=== PATIENT | female | born 1965 | race Caucasian/White ===

== ENCOUNTER 2019-09-01 14:21 | Inpatient (IN) | payer BC, SELFPAY ==
[2019-09-01 14:28] VITALS: BP 126/73; PULSE 97; RESP 16; TEMP 36.1; O2SAT 96; BMI 21.7
--- NOTE | 2019-09-01 14:43 | DI.RAD.S_ITS ---
PROCEDURE: XR HIP W PEL IF DONE LT 2V INDICATIONS: glf,unable to bear weight TECHNIQUE: AP pelvis with lateral view(s) of the left hip(s). COMPARISON: None. FINDINGS: Bones: No dislocations. Pelvic ring appears intact. No suspicious bony lesions. There is a slightly angulated subcapital femoral neck fracture on the left. Soft tissues: The visualized bowel gas pattern is normal. No suspicious soft tissue calcifications. IMPRESSION: Subcapital left femoral neck fracture, slightly angulated and impacted. Dictated by: Julio Dunham M.D. on 09/01/2019 at 16:17 Approved by: Julio Dunham M.D. on 09/01/2019 at 16:18
--- NOTE | 2019-09-01 15:06 | DI.RAD.S_ITS ---
PROCEDURE: XR CHEST 1V INDICATIONS: hip fx. TECHNIQUE: One view of the chest was acquired. COMPARISON: None. FINDINGS: Surgical changes and devices: None. Lungs and pleura: Lungs are clear. No pleural effusions or pneumothorax. Mediastinum: Mediastinal contours appear normal. Heart size is normal. Bones and chest wall: No suspicious bony lesions. Overlying soft tissues appear unremarkable. IMPRESSION: Normal for age, no contraindication to surgical intervention is found. Dictated by: Julio Dunham M.D. on 09/01/2019 at 15:49 Approved by: Julio Dunham M.D. on 09/01/2019 at 15:49
--- NOTE | 2019-09-01 15:06 | ED_ITS ---
HPI - Extremity Injury (Lower) General Chief Complaint: Extremity Injury, Lower Stated Complaint: GLF, left leg pain Time Seen by Provider: 09/01/19 15:06 Source: patient Mode of arrival: Wheelchair Limitations: no limitations History of Present Illness HPI Narrative: This is a 53-year-old female comes emergency department with complaint of left hip pain. Patient was running across her living room when she tripped on a dog toy and fell onto her left hip on a hardwood floor. She immediately had pain. She has a little bit of numbness down her left and tingling into her 4th and 5th toe. She denies any other injuries other than a little bit elbow pain and a little bit of left rib pain patient states no other injuries. No abrasions or cuts. She is not on any blood thinners. She takes a statin daily as well as thyroid medication. She has had Harish fundoplication x2 as well as surgery for a prolapsed uterus. Patient has vomiting with codeine but states that other narcotics have not given her trouble. She denies other allergies. No tobacco occasional alcohol, no illicit. She states her last drin k was last night. Last time she ate or drink anything was 11:00 a.m. this morning she had toast as well as something to drink. She was transported via private vehicle from [facility] where she lives and she received 200 micro g of fentanyl IM and some Tylenol p.o. prior to travel. She is accompanied by her . Related Data Home Medications Medication Instructions Recorded Confirmed atorvastatin 10 mg PO DAILY 09/01/19 09/01/19 diazepam 5 mg PO DAILY PRN 09/01/19 09/01/19 levothyroxine [Synthroid] 88 mcg PO DAILY 09/01/19 09/01/19 ranitidine HCl [Zantac] 150 mg PO DAILY 09/01/19 09/01/19 Allergies Allergy/AdvReac Type Severity Reaction Status Date / Time codeine Allergy Verified 09/01/19 14:33 Review of Systems Review of Systems ROS Unobtainable: All systems reviewed & are unremarkable except as noted in HPI and below Patient History Social History household members: spouse Smoking Status: Unknown if ever smoked Smoking Status: Unknown if ever smoked alcohol intake frequency: holidays/special occasions only Substance Use Type: does not use Exam Narrative Exam Narrative: GENERAL: Alert and oriented x three, well-nourished female, moderate distress. HEENT: Head normocephalic, atraumatic, EOMI, pupils reactive, face symmetric, moist mucous membranes NECK: Supple, full range of motion CARDIOVASCULAR: Regular rate and rhythm without murmurs, rubs or gallops. RESPIRATORY: Breath sounds equal bilaterally, no wheezes rales or rhonchi. ABDOMEN: Soft, nontender. Normoactive bowel sounds all 4 quadrants. No guarding or rebound, rigidity, no mass : No CVA tenderness EXTREMITIES: Left hip pain, decreased range of motion on the patient has some at the left hip, she has sensation throughout the foot. Positive pulse in the left foot with full range of motion of the foot. Cap refill less than 2 seconds., no clubbing or edema. Neurovascularly intact. NEUROLOGICAL: Cranial nerves II through XII grossly intact. Moving all extremities SKIN: Warm, dry, no petechiae, no rashes or lesions. Initial Vital Signs Initial Vital Signs: Vital Signs Temperature 96.9 F L 09/01/19 14:28 Pulse Rate 97 H 09/01/19 14:28 Respiratory Rate 16 09/01/19 14:28 Blood Pressure 126/73 09/01/19 14:28 Pulse Oximetry 96 09/01/19 14:28 Course Orders Ordered: ED Orders 09/01/19 14:43 XR hip w pel if done LT 2V Stat 09/01/19 15:06 XR chest 1V Stat 09/01/19 15:35 Basic Metabolic Panel Stat Complete Blood Count AUTO DIFF Stat Type and Screen Stat Discontinued Medications Hydromorphone HCl (Dilaudid) 0.5 mg IV NOW ONE Stop: 09/01/19 15:21 Last Admin: 09/01/19 15:35 Dose: 0.5 mg Documented by: MARCOSOTEM Hydromorphone HCl (Dilaudid) 0.5 mg IV NOW ONE Stop: 09/01/19 17:22 Last Admin: 09/01/19 17:46 Dose: 0.5 mg Documented by: ASHLI Lorazepam (Ativan) 0.5 mg IV NOW ONE Stop: 09/01/19 16:36 Last Admin: 09/01/19 16:48 Dose: 0.5 mg Documented by: ASHLI Vital Signs Vital signs: Vital Signs - 8 hr 09/01/19 14:28 09/01/19 17:11 Temperature 96.9 F L Pulse Rate 97 H 96 H Respiratory Rate 16 14 Blood Pressure 126/73 140/91 H Pulse Oximetry 96 97 MDM - Extremity Injury (Lower) Lab Data Result diagrams: 09/01/19 15:35 09/01/19 15:35 Labs: Lab Results 09/01/19 09/01/19 09/01/19 Range/Units 15:35 15:35 15:35 WBC 8.9 (4.5-11.0) X10^3/uL RBC 4.52 (4.0-5.2) X10^6/uL Hgb 15.3 (12.0-16.0) g/dL Hct 44.6 (36-46) % MCV 98.6 (80-100) fL MCH 33.9 (26-34) PG MCHC 34.4 (30-36) % RDW 12.5 (11.6-14.8) % Plt Count 239 (150-400) X10^3/uL Neut % (Auto) 82.4 H (50-75) % Lymph % (Auto) 9.1 L (25-40) % [place] % (Auto) 7.5 (3-14) % Eos % (Auto) 0.1 L (2-4) % Baso % (Auto) 0.9 (0-2) % Neut # (Auto) 7400 H (9934-6773) /uL Lymph # (Auto) 800 L (4199-0099) /uL Stokes # (Auto) 700 (0-900) /uL Eos # (Auto) 0 (0-450) /uL Baso # (Auto) 100 (0-100) /uL Sodium 141 (137-145) mmol/L Potassium 3.8 (3.4-5.1) mmol/L Chloride 105 (98-107) mmol/L Carbon Dioxide 21 L (22-32) mmol/L BUN 5 L (7-17) mg/dL Creatinine 0.60 (0.52-1.04) mg/dL Estimated GFR > 60.0 (>60) mL/min BUN/Creatinine Ratio 8.3 (6-22) Glucose 108 H (70-100) mg/dL Calcium 9.3 (8.4-10.2) mg/dL Blood Type A Positive Antibody Screen Negative Imaging Data Hip x-ray: Attestation: I personally reviewed and interpreted this imaging study as follows: My Impression: Patient has a Sonny packed in left femoral neck fracture. Chest x-ray: My Impression: No acute process, no rib fracture appreciated no pneumothorax. No free air under the diaphragm. No pneumothorax. Normal mediastinum with no cardiomegaly. MDM Narrative Medical decision making narrative: Patient comes in with ground level fall left appears to be femoral neck fracture. Patient had basic labs ordered and chest x-ray. I spoke with Dr. Marrufo from orthopedic surgery who accepts. Patient had additional pain medications more comfortable at this time. Dr. Marrufo saw patient in department Discharge Plan Departure Patient Disposition: Admitted As Inpatient Clinical Impression: Closed fracture of neck of left femur Discharge Date/Time: 09/01/19 17:52 Admit Date/Time: 09/01/19 17:26 Admit Provider: Claudette Marrufo
[2019-09-01] MEDS: HYDROMORPHONE 0.5 MG INJ IV ×2 (15:35→17:46)
[2019-09-01] MEDS: ONDANSETRON 4 MG/2 ML INJ (15:56)
[2019-09-01 16:03] LABS: Add Manual Diff / Slide Review NO; Basophils Absolute Auto 100 /uL (0-100); Basophils Percent Auto 0.9 % (0-2); Eosinophils Absolute Auto 0 /uL (0-450); Eosinophils Percent Auto 0.1 % (2-4); Hematocrit 44.6 % (36-46); Hemoglobin 15.3 g/dL (12.0-16.0); Lymphocytes Absolute Auto 800 /uL (1100-4500); Lymphocytes Percent Auto 9.1 % (25-40); Mean Corpuscular HGB Conc 34.4 % (30-36); Mean Corpuscular Hemoglobin 33.9 PG (26-34); Mean Corpuscular Volume 98.6 fL (80-100); Monocytes Absolute Auto 700 /uL (0-900); Monocytes Percent Auto 7.5 % (3-14); Neutrophils Absolute Auto 7400 /uL (1500-7000); Neutrophils Percent Auto 82.4 % (50-75); Platelet Count 239 X10^3/uL (150-400); Red Blood Cell Count 4.52 X10^6/uL (4.0-5.2); Red Cell Distribution Width 12.5 % (11.6-14.8); White Blood Cell Count 8.9 X10^3/uL (4.5-11.0)
[2019-09-01 16:05] LABS: BUN Creatinine Ratio 8.3 (6-22); Blood Urea Nitrogen 5 mg/dL (7-17); Calcium 9.3 mg/dL (8.4-10.2); Carbon Dioxide 21 mmol/L (22-32); Chloride 105 mmol/L (98-107); Estimated Glomerular Filt Rate > 60.0 mL/min (>60); Glucose 108 mg/dL (70-100); HEMOLYSIS 25 (0-50); Potassium 3.8 mmol/L (3.4-5.1); Sodium 141 mmol/L (137-145)
[2019-09-01] MEDS: LORazepam 2 MG/ML INJ 0.5 MG IV (16:48)
[2019-09-01 17:11] VITALS: BP 140/91; PULSE 96; RESP 14; O2SAT 97
[2019-09-01 17:45] VITALS: BP 143/89; PULSE 96; RESP 18; O2SAT 97
[2019-09-01 18:18] VITALS: BMI 21.7
--- NOTE | 2019-09-01 18:58 | PM.HP.1 ---
History of Present Illness History of Present Illness Date Patient Seen: 09/01/19 Time Patient Seen: 19:01 Chief complaint: GLF, left leg pain Narrative: This is a 53-year-old female who accidentally tripped over her dog's toy and landed on her left hip. She noted the acute onset of fairly severe left hip pain. She was evaluated at [facility] noted to have a left hip fracture and transported to [facility]. She notes that she is a nonsmoker she admits to drinking about 3 glasses of wine a day she does use some but not a significant number of carbon needed beverages, she went to the [facility] at [facility]. She did fall on a hardwood floor. She has never had her bone density checked. She does not consume of significant amount of calcium. Patient History Family & Social History Social History: household members spouse Prior Living Arrangements House Safety & Behavioral: Feels Safe in Current Yes Environment Been Physically Hurt or No Threatened By a Person Suicidal Ideation Description None Suicide Plan Description No Plan Tobacco & Substance use: Smoking Status Unknown if ever smoked alcohol intake frequency holiday/special occasion Substance Use Type does not use Meds Home Medications and Allergies Home Medications Medication Instructions Recorded Confirmed Type atorvastatin 10 mg PO DAILY 09/01/19 09/01/19 History diazepam 5 mg PO DAILY PRN 09/01/19 09/01/19 History levothyroxine [Synthroid] 88 mcg PO DAILY 09/01/19 09/01/19 History ranitidine HCl [Zantac] 150 mg PO DAILY 09/01/19 09/01/19 History Allergies Allergy/AdvReac Type Severity Reaction Status Date / Time codeine Allergy Verified 09/01/19 14:33 Review of Systems Review of Systems Narrative: She takes thyroid medicine but she does note that this carefully monitored, she denies a history of lightheadedness chest pain dizziness or any other problems prior prior to tripping over the dog toy. She has had a previous fundoplication and does have a somewhat sensitive stomach. She tolerated pain medications in the past including Dilaudid but has a problem with codeine. Exam Vital Signs (past 8 hours): - 09/01/19 14:28 09/01/19 17:11 09/01/19 17:45 Temperature 96.9 F L Pulse Rate 97 H 96 H 96 H Respiratory Rate 16 14 18 Blood Pressure 126/73 140/91 H Blood Pressure [Right Arm] 143/89 H Pulse Oximetry 96 97 97 Oxygen Delivery Method Room Air Narrative Exam Narrative: She is alert and oriented, HEENT is benign, she is resting comfortably in bed but is little nauseated. Lungs are clear, cor regular rate and rhythm abdomen soft and benign examination of the left lower extremity shows a foreshortened left hip which he is carefully guarding and has propped on pillows, she is neurovascularly intact distally she is able to fire toe flexors and extensors foot is warm with good capillary refill calf to soft bilaterally he has no pain with range of motion in the right hip and severe pain with even gentle motion on the left hip. Objective Labs Result Diagrams: 09/01/19 15:35 09/01/19 15:35 Labs: Laboratory Results - last 24 hr 09/01/19 09/01/19 09/01/19 15:35 15:35 15:35 WBC 8.9 RBC 4.52 Hgb 15.3 Hct 44.6 MCV 98.6 MCH 33.9 MCHC 34.4 RDW 12.5 Plt Count 239 Neut % (Auto) 82.4 H Lymph % (Auto) 9.1 L [place] % (Auto) 7.5 Eos % (Auto) 0.1 L Baso % (Auto) 0.9 Neut # (Auto) 7400 H Lymph # (Auto) 800 L [place] # (Auto) 700 Eos # (Auto) 0 Baso # (Auto) 100 Sodium 141 Potassium 3.8 Chloride 105 Carbon Dioxide 21 L BUN 5 L Creatinine 0.60 Estimated GFR > 60.0 BUN/Creatinine Ratio 8.3 Glucose 108 H Calcium 9.3 Blood Type A Positive Antibody Screen Negative X-rays show a displaced left femoral neck fracture with no significant arthritic change in her hips bilaterally. Assessment & Plan Assessment & Plan narrative: Impression displaced left femoral neck fracture recommendations and plan I have recommended left hip unipolar versus possible total hip arthroplasty. Procedure alternatives risks benefits and complications were discussed in detail. We discussed the possibility of pinning her femoral head versus partial hip replacement versus total hip replacement. The operative plan is for a uncemented partial hip replacement with acetabular replacement if indicated. Limits of the procedure options risks benefits and complications were discussed in detail. She understands and agrees number going to proceed with that tomorrow.
[2019-09-01 19:18] VITALS: BP 146/88; PULSE 92; RESP 18; TEMP 36.2; O2SAT 96
[2019-09-01] MEDS: ONDANSETRON 4 MG/2 ML INJ IV (19:51)
[2019-09-01] MEDS: MORPHINE 2 MG/ML INJ IV (19:51)
[2019-09-01] MEDS: METOCLOPRAMIDE 10 MG/2 ML INJ IV (22:57)
[2019-09-01] MEDS: LACTATED RINGERS 1,000 ML 75 ML IV (23:26)
[2019-09-01 23:45] VITALS: BP 152/95; PULSE 107; RESP 16; TEMP 36.8; O2SAT 96
--- NOTE | 2019-09-01 23:52 | PC.NURSE ---
[facility] shift note: Received patient from ED to room 210, awake, alert, and pleasant. Transferred from [facility] to bed via slider board. NPO after MN. Dr. Marrufo to see patient shortly after arrival, consent signed in chart. C/O nausea and pain, Zofran provided minimal relief, obtained order from Dr. Marrufo for Reglan IV x 1 dose. Becerra Catheter placed, tolerated procedure well. Oriented to room, environment, and plan of care. IVF infusing. Call light within reach. Ed will return in the morning prior to surgery at 1000.
[2019-09-02] VITALS (15 sets, daily range): BP systolic 108–175; BP diastolic 74–110; PULSE 50–109; RESP 10–20; TEMP 36.1–37.1; O2SAT 92–98; BMI 21.7
--- NOTE | 2019-09-02 | DI.RAD.S_ITS ---
PROCEDURE: XR PELVIS 1-2V INDICATIONS: INTER OP TECHNIQUE: Intra-operative view of the pelvis and hip acquired. COMPARISON: [facility], CR, XR HIP W PEL IF DONE LT 2V, 09/01/2019, 14:41. [facility], CR, XR HIP W PEL IF DONE LT 2V, 09/02/2019, 13:25. FINDINGS: Intraoperative image of the hip arthroplasty for repair of the left femoral neck fracture. The image is mislabeled demonstrable via the postoperative appearance of the left hip. IMPRESSION: Intraoperative image of the left hip arthroplasty. Dictated by: Louie George M.D. on 09/02/2019 at 15:26 Approved by: Louie George M.D. on 09/02/2019 at 15:28
[2019-09-02] MEDS: MORPHINE 2 MG/ML INJ IV ×2 (00:08→05:43)
[2019-09-02] MEDS: HYDROMORPHONE 2 MG TABLET PO ×2 (02:35→22:37)
[2019-09-02] MEDS: ONDANSETRON 4 MG/2 ML INJ IV (02:38)
[2019-09-02] MEDS: METOCLOPRAMIDE 10 MG/2 ML INJ IV ×2 (08:46→22:34)
[2019-09-02] MEDS: HYDROMORPHONE 1 MG INJ IV (08:47)
[2019-09-02] MEDS: LACTATED RINGERS 1,000 ML 75 ML IV ×2 (08:49→10:03)
--- NOTE | 2019-09-02 09:50 | PC.NURSE ---
Day shift: Pt off unit for surgery at approx 0950.
[2019-09-02] MEDS: VANCOMYCIN 1,000 MG/200 ML PIGGYBACK 200 MG IV (10:02)
--- NOTE | 2019-09-02 10:19 | SUR.PREOP ---
Transferred patient from Acute care to PACU. Vancomycin started. Patient able to ZEPEDA's x 4. Patient holding an emesis bag. Received Reglan and Diluadid in acute care prior to transfer. at bedside.
--- NOTE | 2019-09-02 11:01 | PM.OP.1 ---
Operative Date/Time/Diagnoses Date of procedure: 09/02/19 Time of procedure: 11:12 Pre-op diagnosis: Left hip femoral neck fracture displaced Post-op diagnosis: same Procedure & Clinicians Procedure: Left hip unipolar Same procedure as scheduled: Yes Indications: This is a 53-year-old female who tripped and fell and noted the acute onset of left hip pain. X-rays showed a displaced left femoral neck fracture she is brought the operating room for a left hip unipolar possible total hip replacement. Surgeon: Claudette Marrufo Toy Assembler: Omar Moraels Anesthesia Type: General Operative Notes Findings: Displaced left femoral neck fracture, good stability, adequate bone Closure Type: primary Specimen(s): none sent Prosthetic devices, grafts, tissues, transplants, or devices: Marrufo and Nephew size 7 standard offset anthology, 47 mm head, +0 Applied: drain(s) Estimated Blood Loss (mL): 250 Blood products transfused: none Procedure in detail: The patient was seen in the pre-operative area, where the patient identified the left hip as the operative site and this was marked with my initials. The patient received pre-operative antibiotics and was taken to the operating room and placed on the operative table in the supine position after satisfactory anesthesia. A multimedia services coordinator out was performed. Patient was placed in the lateral decubitus position and all bony prominences were carefully padded and the arms were appropriately position. The left lower extremity was prepared from the ankle to the iliac crest with ChloroPrep in the usual fashion and draped through sterile drapes. The hip was approached through posterolateral approach. Dissection was carried out down through skin and subcutaneous tissues. The fascia was opened. Gelpi retractors were placed. A Charnley retractor was placed. A small amount of inflamed bursa was resected. The piriformis was identified and protected. The other short external rotators and capsule were carefully stripped from the posterior aspect of the femur. They were tagged and carefully retracted. The femoral neck was brought up and an osteotomy was made of the residual femoral neck approximately 1 fingerbreadth above the lesser trochanter. The head was removed without difficulty. It was carefully sized. The acetabulum was meticulously irrigated with normal saline. There were minimal arthritic changes in the acetabulum. The acetabulum was carefully protected with an E tape. The canal was opened with a box cutting osteotome, followed by a T-handled reamer and a lateralizing reamer. The tapered reamers were then used, followed by sequential broaching. A trial head and neck were then placed and the hip relocated and checked for leg length and stability. The patient was stable in the position of sleep, of squatting, and could be put through a range of motion with 45 degrees internal rotation without dislocation. At 90 degrees flexion, internal rotation to 70 was possible before dislocation. This was felt to be satisfactory and the appropriate components were opened, and the trials were removed. The bone was meticulously cleaned with pulse lavage. The femoral component was placed without difficulty. A repeat trial reduction showed good range of motion and stability. We did a brief Betadine soak after the cement had hardened. Patient had good range of motion and stability. The final head and neck were placed after carefully irrigating the wound. The capsulomuscular flap was then repaired to the greater trochanter though an awl hole using the tag sutures. The short external rotators were repaired with black braided nylon. A deep drain was placed and brought out anteriorly. The fascia seferino was closed with Vicryl. A subcutaneous drain was placed. The subcutaneous layer was closed with interrupted 3-0 Vicryl, and the skin with a running 3-0 V-Lock suture and SteriStrips. An Aquacel Ag dressing was applied and the patient was taken to recovery having tolerated the procedure well. Complications: none Post-operative Condition: stable Disposition: Acute Care Plan for aftercare: The patient will be maintained on a standard total hip replacement protocol with weight bearing as tolerated and posterior hip precautions. The patient will receive Aspirin and sequential compression devices for DVT prophylaxis. The patient will be discharged home when safe for the home environment.
[2019-09-02] MEDS: CEFAZOLIN 2 GM/100 ML FROZ.PIGGY IV ×2 (11:07→19:39)
[2019-09-02] MEDS: TRANEXAMIC ACID 1,000 MG VIAL 2000 MG INJ (11:25)
--- NOTE | 2019-09-02 11:46 | SUR.OPER ---
Lateral on padded OR bed. Gel axillary roll. Arms secured on padded armboard with pillow supporting top arm. Padded hip positioner braces x4 - anterior and posterior chest and pelvis. Additional gel pad used anterior pelvis. Gel pad under bottom leg from knee to foot and secured with tape over sheet.
[2019-09-02] MEDS: BUPIVACAINE 0.25% W/ EPI 30 ML VIAL 60 ML INJ (11:50)
[2019-09-02] MEDS: BUPIVACAINE LIPOSOME 266 MG/20 ML VIAL INJ (11:51)
--- NOTE | 2019-09-02 11:52 | PC.NURSE ---
Day shift: Pt remains off of AC unit at this time.
--- NOTE | 2019-09-02 13:35 | DI.RAD.S_ITS ---
PROCEDURE: XR HIP W PEL IF DONE LT 2V INDICATIONS: surgery TECHNIQUE: AP pelvis and lateral view of the left hip acquired. COMPARISON: [facility], [place], XR HIP W PEL IF DONE LT 2V, 09/01/2019, 14:41. FINDINGS: Bones: Patient is status post left hip arthroplasty, with hardware components in expected positions. The hip joint appears congruent. The visualized bony structures appear intact. Soft tissues: Overlying postoperative changes are noted. No suspicious soft tissue densities. IMPRESSION: Satisfactory appearance of the left hip arthroplasty. Dictated by: Louie George M.D. on 09/02/2019 at 15:29 Approved by: Louie George M.D. on 09/02/2019 at 15:29
--- NOTE | 2019-09-02 14:25 | PC.NURSE ---
Day shift: Pt back to AC unit at approx 1430 from PACU. Aquacel to left hip is CDI. Gustavo-vac patent.
--- NOTE | 2019-09-02 15:13 | CM.DANOTE ---
Discharge Planning/Care Management DCP: assessment: case received, EMR reviewed. Discussed in Team Rounds with plan noted for pt to go to surgery today to repair L hip fracture, obtained after trip and fall involving a dog toy. Pt is a 53 year old female who admitted yesterday evening to care of orthopedic surgeon Dr. Ethan Marrufo. Payer: /[facility] Admission status: INPT: confirmed by UR RN Emily Pt lives in [place] on [address]. PCP: not listed: will confirm when the bedside assessment is completed. Pt has been in surgery today and has just returned to acute care floor. Surgery: L unipolar replacement: posterior precautions. Expect that PT will be ordered and will see what PT reports in Team Rounds tomorrow. Will plan to check in with pt after that and follow for d/c issues and options. Dr. Marrufo states that pt will stay in the hospital until she is stable to return to the home environment. Advanced directive, confirm from FAMILY Start: 09/01/19 18:41 Freq: Q24H Status: Active Protocol: Document 09/01/19 18:41 EM (Rec: 09/01/19 20:41 EM [id number]) Advance Directive, confirm on record Time 20:41 Person contacted Ed Copy received No CM Discharge Assessment Start: 09/02/19 15:12 Freq: Status: Active Protocol: Document 09/02/19 15:12 ITV (Rec: 09/02/19 15:13 ITV [id number]) Discharge Planning Assessment Advance Directives? No History Provided By Medical Record Prior Living Arrangements House Household Members spouse Review Status In Process
[2019-09-02] MEDS: ACETAMINOPHEN 325 MG TABLET 650 MG PO ×2 (16:20→21:14)
[2019-09-02] MEDS: LACTATED RINGERS 1,000 ML 125 ML IV ×2 (16:24→22:34)
[2019-09-02] MEDS: IBUPROFEN 400 MG TABLET PO (21:14)
[2019-09-02] MEDS: DOCUSATE 100 MG CAPSULE PO (21:14)
[2019-09-02] MEDS: ASPIRIN EC 81 MG TABLET PO (21:15)
--- NOTE | 2019-09-02 23:52 | PC.NURSE ---
[facility] shift note: Patient up out of bed with FWW, 1PA, took a few steps and tolerating mobility well, educated regarding precautions. CMS intact. Hemovac output 45 ml. IVF infusing. BP noted to increased in correlation with discomfort. Medicated for pain as ordered with adequate relief. Medicated for nausea with Reglan x 1. High fall risk precautions maintained, calls appropriately for staff assistance.
[2019-09-03] VITALS: BP 130/93; PULSE 87; RESP 16; TEMP 36.6; O2SAT 96
[2019-09-03] MEDS: IBUPROFEN 400 MG TABLET PO ×4 (00:38→13:58)
[2019-09-03] MEDS: CEFAZOLIN 2 GM/100 ML FROZ.PIGGY IV (03:36)
[2019-09-03 04:00] VITALS: BP 148/101; PULSE 82; RESP 16; TEMP 36.6; O2SAT 97
[2019-09-03 06:26] LABS: Hematocrit 41.9 % (36-46); Hemoglobin 14.2 g/dL (12.0-16.0)
[2019-09-03 07:23] VITALS: BP 162/107; PULSE 90; RESP 16; TEMP 36.9; O2SAT 98
[2019-09-03] MEDS: ONDANSETRON 4 MG ODT PO ×2 (08:53→13:24)
[2019-09-03] MEDS: ATORVASTATIN 10 MG TABLET PO (09:43)
[2019-09-03] MEDS: DOCUSATE 100 MG CAPSULE PO (09:43)
[2019-09-03] MEDS: ASPIRIN EC 81 MG TABLET PO (09:43)
[2019-09-03] MEDS: ACETAMINOPHEN 325 MG TABLET 650 MG PO ×2 (09:43→13:58)
[2019-09-03] MEDS: LEVOTHYROXINE 88 MCG TABLET PO (09:44)
[2019-09-03] MEDS: raNITIdine 150 MG CAPSULE PO (09:44)
[2019-09-03] MEDS: HYDROMORPHONE 2 MG TABLET PO ×2 (09:44→13:24)
--- NOTE | 2019-09-03 11:10 | PT.IIE ---
Current Diagnoses Fracture of unspecified part of neck of left femur, initial encounter for closed fracture (09/01/19) Surgery Performed Operation Date: 09/02/19 10:45 Actual Procedures p Hip Hemiarthroplasty Jj(Left) - Claudette Marrufo MD Physical Therapy Inpatient Evaluation/Re-Eval M1 PT/OT-IP Prior Functional Status Start: 09/03/19 08:56 Freq: NEEDED Status: Discharge Protocol: Document 09/03/19 11:10 DLM (Rec: 09/03/19 11:53 DLM [email or web address]) Medical Review Prior Functional Status Medical History Reviewed Yes Diet/Fluid Consistency Regular Communication WFL Mobility and Gait Independent without device, community distances Activities of Daily Living and IADL's Independent, takes care of dog Social History Household Members spouse Living Arrangements House Number of Floors (Floors) Two Floors Number of Stairs To Enter/Railing? 2+2, some with rails but not all Home Environment Standard Height Toilet Additional Social History Comment they will get equipment from [employer] on [address] M2 PT-IP Current Condition Start: 09/03/19 08:56 Freq: NEEDED Status: Discharge Protocol: Document 09/03/19 11:10 DLM (Rec: 09/03/19 12:16 DLM [email or web address]) Physical Therapy Current Condition Current Condition Evaluation Date 09/03/19 Treatment Diagnosis left DIANA following a fall and fx, post, impaired gait Onset Date 09/01/19 Precautions Posterior Hip Precautions No Hip Flexion > 90 degrees,No Hip Internal Rotation,No Hip Adduction Weight Bearing Status Weight Bearing Status Weight Bear as Tolerated M3 PT-IP Subjective Start: 09/03/19 08:56 Freq: NEEDED Status: Discharge Protocol: Document 09/03/19 11:10 DLM (Rec: 09/03/19 12:16 DLM [email or web address]) Subjective Physical Therapy Visit Type Type Initial Evaluation Visit Start Time 10:15 Visit Stop Time 11:10 Total Visit Minutes 55 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 Physical Therapy Visit Comments Patient Comments She is sore today Patient Goals she wants to go home today Therapy Pain Assessment Pain When Pain Assessed During Mobility Pain Present Pain Present Pain Reported Location Left Hip Intensity 4 Scale Used Numeric (1 - 10) Description Aching Pain Behaviors Guarding Pain Management Techniques Apply Cold,Re-positioning M4 PT-IP Mobility and Gait Start: 09/03/19 08:56 Freq: NEEDED Status: Discharge Protocol: Document 09/03/19 11:10 DLM (Rec: 09/03/19 12:16 DLM [email or web address]) PT-Bed Mobility Assessment Supine to Sit Supine to Sit Standby Assistance Sit to Supine Sit to Supine Standby Assistance Scooting Scooting to Edge of Bed Independent Scooting Up and Down in Bed Independent PT-Transfer Assessment Sit to and From Stand Sit to and from Stand Standby Assistance,Use of Upper Extremities Equipment Transfer Assistive Device Gait Belt,Front Wheeled Walker Transfers Transfer Destination Bed Transfer Technique Stand Step Pivot Transfer Ability Level of Assist Standby Assistance,Use of Upper Extremities Comments Mobility Comments verbal cues for post hip precautions, pt has a tall bed at home so trialed a taller bed surface and she manages it well Gait Assessment Gait Gait Assistance Required: Standby Assistance Distance (Feet) 200 Able to Maintain Weight Bearing Status Yes During Gait Assistive Devices Assistive Device Gait Belt,Front Wheeled Walker Gait Deviations General Gait Pattern Antalgic,Decreased Stride Length Factors Limiting Gait Function Factors Limiting Gait Function Decreased Activity Tolerance, Decreased Strength,Limited Range of Motion,Pain,Poor Balance Stair Climbing Assessment Evaluation Level of Assist On Stairs Standby Assistance Devices Stair Climbing Assistive Devices Straight Cane,Axillary Crutches,Right Railing Technique/Endurance Stair Climbing Direction Ascend and Descend Stair Climbing Technique Step to Step Number of Steps Climbed 3 Query Text: Stair Climbing Set # Repetitions (reps) 3 Comments Stair Climbing Comments up and down curb with fWW and SBA. Recommend pt use one crutch and rail for her 13 steps up to the bedroom. She will need her Spouse to assist her to get the fWW from one level of the house to the next PT-Balance Assessment Sitting Balance and Reactions Static Sitting Balance Ability Good Dynamic Sitting Balance Ability Good Standing Balance and Reactions Static Standing Balance Ability Good Dynamic Standing Balance Ability Good Device Used FWW M5 PT-IP Objective Assessments Start: 09/03/19 08:56 Freq: NEEDED Status: Discharge Protocol: Document 09/03/19 11:10 DLM (Rec: 09/03/19 12:16 DLM [email or web address]) Orientation Orientation/Cognition Level of Alertness Alert Orientation Name,Age,Birthday,Month,Date, Year,Day of Week,Place, Situation Language Function Ability No Deficits Noted Safety Awareness Understands Safety Issues Memory Description No Deficits Noted Gross Range of Motion Upper Extremity ROM Assessment Within Functional Limits Lower Extremity ROM Assessment Left Impaired Impairments post-op precautions and pain limit her ROM Strength Upper Extremity Strength Assessment Within Functional Limits Lower Extremity Strength Assessment Left Impaired Hip flexion 2+/5 Knee ext 3+/5 Ankle DF 4+/5 Comments Strength Comments pain limits strength left LE post-op Coordination Assessment Gross Coordination Gross Coordination Impaired Assessment Coordination Comments mild to moderate tremors, able to use hands functionally Sensation Assessment Sensation Gross Sensation WNL Muscle Tone Muscle Tone WNL Yes M6 PT-IP Treatment Start: 09/03/19 08:56 Freq: NEEDED Status: Discharge Protocol: Document 09/03/19 11:10 DLM (Rec: 09/03/19 12:16 DLM [email or web address]) Physical Therapy Treatment Exercises Exercises Ankle Pumps Education Education Provided Precautions,Weight Bearing Status,Post-Op Packet,Safety M7 PT-IP Assessment and Plan Start: 09/03/19 08:56 Freq: NEEDED Status: Discharge Protocol: Document 09/03/19 11:10 DLM (Rec: 09/03/19 12:16 DLM [email or web address]) PT Summary Assessment and Plan Potential Rehabilitation Potential Excellent Status of Condition at Evaluation Evolving Summary Impairments Pain,ROM,Strength,Balance,Bed Mobility,Transfers,Gait, Activity Tolerance Progress Towards Goals Safe For Discharge Assessment Summary Heaven is very motivated to return home today. She tolerated gait with fWW well. She is able to get up and down stairs as needed to manage at home. She has a supportive Spouse to assist her at home. Her Spouse has a plan to get equipment as needed on [facility]. Pt is safe to discharge home with assist from her Spouse. Notified the nurse that pt is safe to discharge home when medically cleared. Pt still has munoz catheter in at this time. Frequency of Treatment Frequency Of Treatment Discharge Recommendations To Nursing Amount of Assist Needed Standby Assistance Discharge Recommendations PT Discharge Recommendations Home with Assistance Equipment Needed for Home Before pt plans to get equipment on Discharge [facility]- FWW, crutches, cane, raised toilet seat with armrest, shower chair Transportation Needs at Discharge Private Vehicle
[2019-09-03 12:08] VITALS: BP 140/107; PULSE 86; RESP 16; TEMP 36.9; O2SAT 98
--- NOTE | 2019-09-03 13:27 | PM.PN.1 ---
Subjective Subjective Date Patient Seen: 09/03/19 Time Patient Seen: 13:27 Interval history: Patient is POD#1 s/p left hip unipolar replacement following femoral neck fracture with Dr. Marrufo. Pain has been moderate to severe but controlled with medication. She has mobilized with PT. She is voiding appropriately. She denies any chest pain, shortness of breath, nausea or vomiting. Exam Vital Signs (past 8 hours): - 09/03/19 07:23 Temperature 98.5 F Pulse Rate 90 Respiratory Rate 16 Blood Pressure 162/107 H Pulse Oximetry 98 Oxygen Delivery Method Room Air Oxygen Flow Rate 0 Narrative Exam Narrative: 53 year old female resting in bed. Alert and oriented in no acute distress. Aquacel dressing over left hip is CDI. Intact motor in distal extremity. Objective Labs Result Diagrams: 09/03/19 05:55 09/01/19 15:35 Labs: Laboratory Results - last 24 hr 09/03/19 05:55 Hgb 14.2 Hct 41.9 Assessment & Plan Assessment & Plan narrative: Patient progressing well post operatively. Prescriptions for Dilaudid and Zofran provided for postop pain. ASA 81mg BID for DVT prophylaxis. She has been cleared by PT. Discharge to home later today. Follow up with [facility] in 2 weeks.
--- NOTE | 2019-09-03 14:08 | PC.NURSE ---
c/m/s to LLE positive, ppp; pt ambulates to bathroom with fww and voiding; Hemovac d/c at 1300, scant drainage; PO pain medication and zofran PRN; IV d/c at 1300; patient instructed regarding RX medications, f/u care, s/sx infection; pt escorted via wheelchair to personal vehicle with ferry pass and personal belongings on hand.
--- NOTE | 2019-09-03 15:05 | CM.DPC ---
dCP: continued: case discussed in Team Rounds with PT saying the first eval would be today. Was updated later by PT Rosa that pt was very much hoping for a d/c back to [place] ferry and was eagerly waiting for otho team to give her the d/c order. A check in now shows that pt did leave for [facility] in company of her at 1300.
== END 2019-09-03 14:00 | disposition home or self-care (01) | DRG 470 ==
LOC: ED 16:10 → AC 17:28
PROVIDERS: Admitting Provider Orthopaedic Surgery; Emergency Provider Emergency Medicine; Referring Provider Emergency Medicine; Visit Provider Orthopaedic Surgery
PROC: 0SRS0JZ Replacement of Left Hip Joint, Femoral Surface with Synthetic Substitute, Open Approach (ICD-10-PCS; CPT 27125; principal; 2019-09-02 10:45)
DX: S72.002A Fracture of unspecified part of neck of left femur, initial encounter for closed fracture (principal); W01.0XXA Fall on same level from slipping, tripping and stumbling without subsequent striking against object, initial encounter; Y92.008 Other place in unspecified non-institutional (private) residence as the place of occurrence of the external cause
CPT/HCPCS: 36415; 71045; 72170; 73502; 80048; 85014; 85018; 85025; 86850; 86900; 86901; 96374; 96375; 96376; 97116; 97162; 97530; 99284; C1776; C9290; J0690; J1100; J1170; J2060; J2270; J2405; J2704; J2765; J3010

== ENCOUNTER → 2021-08-03 09:28 | Outpatient (CLI) | payer OTHER, SELFPAY ==
[2021-08-03 20:20] LABS: COVID19 - ORCAS (NP or Nasal) Negative (Negative)
== END ==
PROVIDERS: PCP Family Medicine; Visit Provider Physician Assistant Medical
DX: Z01.812 Encounter for preprocedural laboratory examination (principal)
CPT/HCPCS: U0003

== ENCOUNTER 2021-08-06 12:09 | Day surgery (SDC) | payer OTHER, SELFPAY ==
[2021-08-06] VITALS (7 sets, daily range): BP systolic 101–124; BP diastolic 67–80; PULSE 78–99; RESP 12–18; TEMP 36.3–37.1; O2SAT 99–100; BMI 21.7
--- NOTE | 2021-08-06 | PATH_ITS ---
[facility] Accession Number: [id number] . 01 Material submitted: . PART A: duodenum - DUODENUM BIOPSY PART B: gastrointestinal site - ANTRUM BIOPSY PART C: esophagus - DISTAL ESOPHAGUS PART D: colon - RANDOM COLON BIOPSIES . 02 Diagnosis: A. Duodenum, Biopsy: Duodenal mucosa with no diagnostic abnormality. Negative for active inflammation, features of sprue, dysplasia, or malignancy. . B. Stomach, Antrum, Biopsy: Antral mucosa with mild chrnoic gastritis. Negative for Helicobacter by immunohistochemistry. Negative for intestinal metaplasia. Negative for dysplasia and malignancy. . C. Distal Esophagus, Biopsy: Columnar mucosa with mild reactive stromal changes suggestive of healed/healing erosion. Negative for intestinal metaplasia. Negative for dysplasia and malignancy. . D. Random Colon, Biopsies: Colonic mucosa with no diagnostic abnormality. Negative for active, chronic, and microscopic colitis. Negative for dysplasia and malignancy. . [facility] 08/10/2021 1336 Local . 02 Electronically signed: . Italia Carter MD, Pathologist NPI- [id number] . 01 Gross description: . Part A: DUODENUM BIOPSY: Received in formalin are 4 fragment(s) of house, soft tissue measuring 0.1 x 0.1 x 0.1 cm to 0.3 x 0.3 x 0.2 cm submitted entirely in 1 cassette(s) Part B: ANTRUM BIOPSY: Received in formalin are 2 fragment(s) of house, soft tissue measuring 0.1 x 0.1 x 0.1 cm to 0.3 x 0.2 x 0.2 cm submitted entirely in 1 cassette(s) Part C: DISTAL ESOPHAGUS: Received in formalin is 1 fragment(s) of house, soft tissue measuring 0.1 x 0.1 x 0.1 cm submitted entirely in 1 cassette(s) Part D: RANDOM COLON BIOPSIES: Received in formalin are 2 fragment(s) of house, soft tissue measuring 0.1 x 0.1 x 0.1 cm to 0.3 x 0.2 x 0.2 cm submitted entirely in 1 cassette(s) /CHERYL 08/07/20211954 [facility] . 02 Microscopic: . B. An immunohistochemical stain was performed to evaluate for Helicobacter organisms and is negative. The control stain showed appropriate reactivity. . C. An AB/PAS stain was performed to evaluate for intestinal metaplasia and is negative. The control stain showed appropriate reactivity. . * This test was developed and its performance characteristics determined by [employer]. It has not been cleared or approved by the U.S. Food and Drug Administration. The FDA has determined that such clearance or approval is not necessary. This test is used for clinical purposes. It should not be regarded as investigational or for research. . 02 Pathologist provided ICD-10: R11.2, R19.7 . 02 CPT . 377164, 585858, 674223, 729104, 589038, [id number] Performed at: 01 [facility] [address] [address], [place], [place] [id number] MD Martin Ortega MD Phone: [phone] Performed at: 02 [facility] [address] [place] [id number] MD Italia Carter MD Phone: [phone]
[2021-08-06] MEDS: SODIUM CHLORIDE 0.9% 1,000 ML 84 ML IV (12:53)
--- NOTE | 2021-08-06 13:32 | PM.HP.1 ---
History of Present Illness History of Present Illness Date Patient Seen: 08/06/21 Time Patient Seen: 13:32 Chief complaint: DX COLONOSCOPY & EGD W/POSS BX'S Narrative: I reviewed Dr. Gómez's note. No changes Patient History Family & Social History Social History: household members spouse Tobacco & Substance use: Smoking Status Never smoker alcohol intake frequency holiday/special occasion Substance Use Type marijuana Meds Home Medications and Allergies Home Medications Medication Instructions Recorded Confirmed Type atorvastatin 10 mg tablet 10 mg PO DAILY 09/01/19 08/06/21 History diazepam 5 mg tablet 5 mg PO DAILY PRN 09/01/19 08/06/21 History levothyroxine 88 mcg tablet 88 mcg PO DAILY 09/01/19 08/06/21 History (Synthroid) ranitidine HCl 150 mg tablet 150 mg PO DAILY 09/01/19 08/06/21 History (Zantac) ibuprofen 400 mg tablet 400 mg PO Q4HR #40 tab 09/03/19 08/06/21 Rx omeprazole 40 mg capsule,delayed 40 mg PO DAILY 08/06/21 08/06/21 History release Allergies Allergy/AdvReac Type Severity Reaction Status Date / Time codeine Allergy Verified 08/06/21 12:40 Review of Systems Review of Systems ROS: Yes All systems reviewed with the patient and are negative except as otherwise documented Exam Vital Signs (past 8 hours): - 08/06/21 12:20 Temperature 98.8 F Pulse Rate 99 H Respiratory Rate 16 Blood Pressure 124/78 Pulse Oximetry 99 Oxygen Delivery Method Room Air Const General: cooperative and comfortable Orientation: alert HENMT Head: normocephalic Ears: external ears normal Nose: external nose normal Face and sinus: normal facial exam Mouth: oral mucosae normal Eyes General: appearance normal, both eyes and all related structures Neck Neck: normal visual inspection Chest Chest: normal inspection of the chest Resp Effort & Inspection: normal respiratory effort Cardio Rate: regular rate GI Inspection: normal to inspection Skin General: no rashes or lesions noted and No jaundice Neuro General: patient alert and moves all extremities Cognition: normal cognition Speech: speech normal Extrem General: no pedal edema Psych Appearance: grossly normal Assessment & Plan Assessment & Plan narrative: 55-year-old female with recurrent refractory reflux nausea vomiting and diarrhea for the last year. Only partial improvement with PPI and ranitidine. EGD and colonoscopy are Therefore pursued today. Time Spent With Patient Critical Care time: I spent a total of [] minutes of critical care time on this patient's care today; this time is exclusive of procedural time.
--- NOTE | 2021-08-06 13:34 | PM.PREOP ---
Pre-operative Note COVID-19 COVID-19 status: Negative Result date/Date tested (Pos, Neg/Pending): 08/03/21 Criteria for continued procedure: Possibility delay results in more complex future surgery or treatment Interval Note History & Physical reviewed/Exam performed by Physician: Yes Changes to H&P: No ASA Class (for procedural sedation): II
--- NOTE | 2021-08-06 14:11 | PM.OP.EC ---
Operative Date/Time/Diagnoses Date of procedure: 08/06/21 Time of procedure: 14:11 Pre-op diagnosis: GERD nausea vomiting diarrhea personal history of colon polyps Post-op diagnosis: same Procedure & Clinicians Study performed: EGD with biopsies and colonoscopy with biopsies Same procedure as scheduled: Yes Indications: GERD nausea vomiting diarrhea personal history of colon polyps Surgeon: Richard Ferris Procedure Notes SCOAP/Timeout: Done Procedure in detail: After the risks and benefits were explained, written and verbal informed consent was obtained. The patient was brought into the procedure room and placed into the left lateral decubitus position. Please see nurse cross country/track and field coach notes for sedation details. The scope was introduced into the mouth through the bite block and advanced under direct visualization to the 2nd portion of the duodenum. The scope was slowly withdrawn carefully examining the mucosa for any defects or lesions. Retroflexed views were accomplished in the stomach. The stomach was decompressed, the scope was then removed from the patient who tolerated the procedure well. The patient was then turned around a digital rectal examination accomplished no significant pathology appreciated the scope was introduced into the rectum and advanced to the cecum as identified by the appendiceal orifice and ileocecal valve. The terminal ileum was interrogated the scope then slowly withdrawn to carefully examine the mucosa for any defects or lesions. Multiple direct views were made through the dentate line for exclusion of pathology the colon was decompressed scope removed the patient tolerated the procedure well. Adult colonoscope Adequate bowel prep Scope withdrawal time: 8 minutes Sedation minutes: 31 Complications: none Impression: 1. Duodenum: This was normal from the bulb to the 2nd portion. Random D2 biopsies were taken for exclusion of sprue. 2. Stomach: Mild gastropathy was seen in the antrum biopsies were taken at random for exclusion of Helicobacter or other pathology. No ulcers no obstruction no mass lesions. Retroflexed views disclosed evidence of a prior surgical wrap. She clearly had recurrence of hiatal hernia as well as the wrap appeared to be moderately loose at this point. 3. Esophagus: The squamocolumnar junction for the most part correlated with the top of the gastric folds. There was an approximately 1 cm extension of the salmon colored mucosa up into the tubular esophagus in the 6-7 o'clock location. I therefore targeted this area for biopsy to exclude Thorpe's. No evidence of any active inflammation strictures neoplasia. 4. Colon: No evidence of any macroscopic colitis throughout. Random biopsies were taken for exclusion of microscopic colitis. Diverticulosis was noted in the sigmoid. No significant polyps or mass lesions throughout. 5. Terminal ileum: This appeared visually normal. Post-procedure Plan for aftercare: 1. Await histopathology 2. Continue anti-reflux therapy 3. If Thorpe's is identified then surveillance EGD will be indicated. 4. Repeat colonoscopy 5 years. Disposition: PACU
== END 2021-08-06 15:09 | disposition home or self-care (01) ==
LOC: ENDO 12:13
PROVIDERS: PCP Family Medicine; Referring Provider Internal Medicine Gastroenterology; Visit Provider Internal Medicine Gastroenterology
PROC: 0DJ08ZZ Inspection of Upper Intestinal Tract, Via Natural or Artificial Opening Endoscopic (ICD-10-PCS; CPT 43235; principal; 2021-08-06 13:30)
PROC: 0DJD8ZZ Inspection of Lower Intestinal Tract, Via Natural or Artificial Opening Endoscopic (ICD-10-PCS; CPT 45378; 2021-08-06 13:30)
DX: R19.7 Diarrhea, unspecified (principal); K21.9 Gastro-esophageal reflux disease without esophagitis; R11.2 Nausea with vomiting, unspecified; Z86.010 Personal history of colon polyps; K44.9 Diaphragmatic hernia without obstruction or gangrene; K57.30 Diverticulosis of large intestine without perforation or abscess without bleeding; K29.50 Unspecified chronic gastritis without bleeding
CPT/HCPCS: 45380; 43239; J2704